=== PATIENT | male | born 1985 ===

== ENCOUNTER 2023-08-29 21:48 | Emergency (ER) | payer SELFPAY ==
[~2023-08-29] VITALS: Ht 177.8 cm; Wt 109.1 kg
[2023-08-29 22:20] VITALS: BP 121/82; PULSE 109; RESP 14; TEMP 98; O2SAT 96
== END 2023-08-29 22:43 ==
LOC: ER 21:48
DX: S00.211A Abrasion of right eyelid and periocular area, initial encounter (principal); M79.18 Myalgia, other site; V87.7XXA Person injured in collision between other specified motor vehicles (traffic), initial encounter; Y93.89 Activity, other specified; Y92.488 Other paved roadways as the place of occurrence of the external cause; Y99.8 Other external cause status
CPT/HCPCS: 99283